=== PATIENT | male | born 1985 ===

== ENCOUNTER 2024-09-04 10:04 | Outpatient (AMB) | payer OTHER, SELFPAY ==
--- NOTE | 2024-09-04 10:06 | HO.SPINEOV ---
Intake Visit Reasons: hx of disc replacement surgery Intake Note: Mr. Sweeney is here today c/o low back pain. Physician Internist Required: No Assessment & Plan Assessment & Plan (1) Chronic idiopathic pain syndrome: Code(s): G89.29 - Other chronic pain Category: Medical Plan Dear colleague Thank you for referring Shiva Sweeney to the office today with a chief complaint of neck and back pain. HPI: This 39-year-old male has a history of an L5-S1 lumbar fusion from which he recovered well. He comes in stating that he has severe neck pain radiating down both arms. The pain wakes him up at night. He is unable to move his right hand when he wakes up at night. Driving his painful with radiating pain from the neck down to his arms. He also has low back pain across the lumbar spine that radiates to the right thigh and groin. The left leg is affected to a lesser extent. No weakness or numbness. He works in construction. He takes trazodone, oxycodone, gabapentin, ibuprofen and recently was diagnosed with hypotension. He is scheduled to undergo a lumbar injection for the back pain. On exam, is a pleasant male. There are no motor or sensory deficits. The reflexes are symmetrically intact. No pathological reflexes. Radiological Studies: MRI of the cervical and lumbar spine done at [place] on 08/13/2024 shows mild cervical spondylosis and besides the L5-S1 fusion and otherwise normal MRI. Impression/Plan: This patient is suffering from neck pain radiating down both arms and back pain with radicular component without compression on the MRI. I advised him to reduce the amount of medications he has taken to see if this even is doing something for the pain and secondly I recommended either neurologist or marketing and communications officer for further workup. Thank you for allowing me to participate in your patients care. total time spent was 50 minutes in counseling ,coordination of plan, personal review of imaging, surgical decision making and subsequent plan Jacob Browne MD, PhD [facility] Trained Neurosurgeon Director, [facility] Coding Level of Care Code New Pt Level 4 (58055) Diagnoses Chronic idiopathic pain syndrome G89.29
== END 2024-09-04 11:26 | disposition home or self-care (01) ==
LOC: HO.HNS 10:05
PROVIDERS: PCP Internal Medicine; Visit Provider Neurological Surgery
DX: G89.29 Other chronic pain (principal)
CPT/HCPCS: 99204

== ENCOUNTER → 2024-09-04 10:04 | Outpatient (BNVA) | payer OTHER, SELFPAY | PROVIDERS: PCP Internal Medicine; Visit Provider Neurological Surgery ==